=== PATIENT | male | born 1965 | race Caucasian/White ===

== ENCOUNTER 2020-12-15 08:38 | Day surgery (SDC) | payer BC, SELFPAY ==
[2020-12-15] MEDS: Tropicam./Phenyleph. (1/2.5%) 5 ML BTL OS ×3 (09:19→09:30)
[2020-12-15 09:20] VITALS: BP 153/94; PULSE 94; RESP 16; TEMP 36.4; O2SAT 95
--- NOTE | 2020-12-15 09:26 | W.ANESPRE ---
General Info Date of Service Date Performed: 12/15/20 Height: 6 ft 2 in Weight: 155.9 kg Body Mass Index (BMI): 44.1 Surgical Procedure: Operation Date: 12/15/20 10:40 Proposed Procedures Side Surgeon p Cataract Extraction with IOL Implant Left Jose Alfredo Espinoza MD Meds Allergies and Home Medications Allergies Allergy/AdvReac Type Severity Reaction Status Date / Time No Known Allergies Allergy Unverified 12/15/20 09:16 Home Medication Medication Instructions Recorded amlodipine 10 mg PO DAILY 12/13/20 losartan-hydrochlorothiazide 1 tab PO DAILY 12/13/20 Current Visit Medications: Current Medications Generic Name Dose Route Start Last Admin Trade Name Freq PRN Reason Stop Dose Admin Acetaminophen 1,000 mg 12/15/20 06:00 Acetaminophen 500 Mg Tab PO Q4H PRN PRN Miscellaneous Medication 0 ml 12/15/20 06:00 Prednisolone 1%, Moxifloxacin 0.5%, Nepafenac 0.1% 5ml Btl OS DIRECTED SHIRIN Miscellaneous Medication 0 ml 12/15/20 06:00 12/15/20 09:25 Tropicam./Phenyleph. (1/2.5%) 5 Ml Btl OS 1 drp DIRECTED SHIRIN Administration Tetracaine HCl 0 ml 12/15/20 06:00 Tetracaine 0.5% 4 Ml Btl OS DIRECTED SHIRIN PFSH Active Problems Active Problems: Problem Status Onset Code Nuclear sclerotic cataract of left eye H25.12 Posterior subcapsular age-related cataract of left eye H25.042 Medical History Medical History Cataract HTN (hypertension) Leg pain Low back pain Surgical History Surgical History (Updated 12/15/20 @ 09:16 by Shelbi Sánchez) History of appendectomy History of back surgery Hx of hand surgery Tobacco Smoking/Tobacco Use Status: Current-Occasional Tobacco Type: cigarettes Alcohol Alcohol Intake: current Alcohol intake frequency: a few times a week Alcohol type: beer Substance Use Substance use: Never Substance use type: does not use Details: alcohol: t-1, couple drinks Vital Signs and Lab Results Vital Signs Most Recent Vital Signs in EMR: Most Recent Vital Signs Temp Pulse Resp BP Pulse Ox 36.4 C L 94 H 16 153/94 H 95 12/15/20 09:20 12/15/20 09:20 12/15/20 09:20 12/15/20 09:20 12/15/20 09:20 Lab Results Blood Type / Crossmatch: No Data to Display Complete Blood Count: No Data to Display Complete Metabolic Panel: No Data to Display Liver Function Panel: No Data to Display Coagulation Panel: No Data to Display Cardiac Panel: No Data to Display Arterial Blood Gas: No Data to Display Venous Blood Gas: No Data to Display Pancreas Panel: No Data to Display Thyroid Panel: No Data to Display Infectious Disease: No Data to Display Blood Cultures: No Data to Display Toxicology Panel: No Data to Display Anesthesia Assessment and Plan Anesthesia History Personal History: No History of Anesthesia Complications Family History: No Family History of Anesthesia Complications Exercise Tolerance Exercise Tolerance: Metabolic Equivalents>4 Pertinent Negatives Pertinent Negatives: No Symptoms of GERD, No Major Cardiovascular Symptoms or Complaints and No Major Pulmonary Symptoms or Complaints Cardiac & Pulmonary Exam Cardiac Exam: Normal S1/S2 Heart Sounds Pulmonary Exam: Clear Bilateral Breath Sounds Airway Exam Known Difficult Airway: No Mallampati Class: 1 Mouth Opening: Normal (> 3cm) Thyromental Distance: Greater than 3 cm Neck Range of Motion: Full ROM Neck Circumference: Normal Teeth Condition: Normal Dentition ASA Classification ASA Score: ASA 3 Emergency Case?: No NPO Status NPO Status: NPO Clears >2 hours, Solids >8 hours Anesthesia Plan Resuscitation Status: Full Code Anesthesia Technique: MAC Anesthesia Airway Planned: Natural Airway Monitors Used: Standard Monitors
[2020-12-15 09:27] VITALS: BMI 44.1
[2020-12-15] MEDS: Tetracaine 0.5% 4 ML BTL OS (10:41)
[2020-12-15] MEDS: Lidocaine 2% Jelly 6 ML SYR (10:42)
[2020-12-15] MEDS: Povidone-Iodine Ophth 30 ML BTL (10:42)
[2020-12-15] MEDS: Balanced Salt Soln.-PLUS 500 ML BAG (10:43)
[2020-12-15] MEDS: Lidocaine 1% Pres-Free 5 ML VIAL (10:44)
[2020-12-15] MEDS: Duovisc Viscoelastic System EACH 1 EACH (10:44)
[2020-12-15] MEDS: Trypan Blue 0.06% 0.5 ML SYR (10:51)
[2020-12-15 11:12] VITALS: BP 164/97; PULSE 92; RESP 18; TEMP 36.5; O2SAT 100
--- NOTE | 2020-12-15 11:14 | W.PM.DSUDISC ---
Discharge Plan Disposition Patient Disposition: HOME Condition: Good Discharge Details Reason For Visit: Cataract Attending Provider: Jose Alfredo Espinoza Primary Care Provider: Leila Pride Home Meds and New Rx's Prescriptions: No Action losartan-hydrochlorothiazide 100-25 mg Tablet 1 tab PO DAILY RF: 0 amlodipine 10 mg Tablet 10 mg PO DAILY RF: 0 Discharge Instructions Stand Alone Forms: Post-op Topical Cataract, Maxx Luong (DSU) Discharge Orders Discharge Orders: Discharge Order (Routine); Ordered 12/15/20 Ordered By: Jose Alfredo Espinoza DS: Diagnosis Discharge Diagnosis (1) Nuclear sclerotic cataract of left eye: Status: Resolved (2) Posterior subcapsular age-related cataract of left eye: Status: Resolved
--- NOTE | 2020-12-15 11:15 | W.PM.OP ---
Date of service: 12/15/20 Time of Service: 11:15 Operative Note Operative Note DATE OF PROCEDURE: 12/15/20 PRE-OP DIAGNOSIS: Nuclear/posterior subcapsular cataract, left eye Poor red reflex, left eye secondary to cataract POST-OP DIAGNOSIS: same PROCEDURE: Cataract extraction using phacoemulsification with intraocular lens implant, left eye, using capsular staining with Vision Blue SURGEON: Jose Alfredo Espinoza ANESTHESIA TYPE: Local By Surgeon and MAC Refer to Anesthesia Record COMPLICATIONS: None Patient was transported to: same day Patient's condition: stable Implants: [employer] / [employer] Tecnis [id number] Indications: Progressive decreased vision due to cataract, left eye, with poor red reflex Procedure Description: CATARACT SURGERY OPERATIVE REPORT PREOPERATIVE DIAGNOSIS: 1. Nuclear/posterior subcapsular cataract, left eye 2. Poor red reflex secondary to #1 POSTOPERATIVE DIAGNOSIS: Same OPERATION: 1. Cataract extraction using phacoemulsification with posterior chamber intraocular lens implant, left eye. 2. Capsular staining with Vision Blue IOL: IOL Industrial Editor/Model: Hansel & Hansel / JOHNATHAN Tecnis [id number] IOL Power: + 20.5 diopters IOL Serial Number: [id number] Optic Diameter: 6.0 mm Haptic/Overall Diameter: 13.0 mm PHACO INFO: Juan Manuel [employer] Testurion Vision System with OZil and Active Fluidics Cumulative Dispersed Energy (CDE): 5.09 seconds SURGEON: Jose Alfredo Espinoza MD, MARIA DE JESUS ANESTHESIA: Monitored A [facility] (MAC), with local sub-tenon's anesthetic infiltration COMPLICATIONS: None SPECIMENS: None INDICATIONS FOR PROCEDURE: The patient is a 55-year-old gentleman with history of diminished visual acuity in his left eye. He is noted to have a dense posterior subcapsular cataract with moderate nuclear cataract of the left eye. Visual acuity is 2400. The option of cataract surgery was offered to the patient and he wished to proceed. PROCEDURE: The correct surgical eye was identified and marked as the left eye and the pupil was dilated in the preoperative area using mydriatics and cycloplegics. The dilated pupil size was 7.0 mm. He elected to proceed without oral sedation. The patient was brought to the operating room where cardiopulmonary monitoring was instituted and surgical time-out was performed, confirming the correct operative eye and IOL power. Topical anesthesia was administered and ophthalmic povidone-iodine 5% was instilled into the conjunctival fornices. Lidocaine gel was applied to the cornea and the prasanth-ocular area was prepped with Betadine 10% solution and draped in the usual sterile fashion for intraocular surgery, including an aperture drape. A Tegaderm transparent film dressing was cut in half and used to cover the lashes and lid margins. Care was taken to sequester the lashes and lid margins under the Tegaderm dressing. A lid speculum was placed between the lids of the operative eye and the Faraz-Shaneka operating microscope was maneuvered into position. Mckinley scissors were then used to make a conjunctival buttonhole approximately 6mm posterior to the limbus in the inferonasal quadrant. Blunt dissection was carried out to expose bare sclera, and a blunt-tipped sub-tenon?s anesthesia cannula was introduced and passed posteriorly along the globe where non-preserved plain lidocaine was injected into posterior sub-Tenon?s space. A sideport knife was used to make a paracentesis port superiorly/superiortemporally. Intraocular phenylephrine/lidocaine was injected int the anterior chamber.. Air was then injected into the anterior chamber, followed by Vision Blue, which was painted over the anterior capsule and then irrigated out using BSS. The anterior chamber was filled with viscoelastic. A 2.4mm keratome knife was used to create a half-thickness groove at the limbus and then to construct a three-plane near-clear corneal tunnel extending 2.0mm into clear cornea at the 3:00 position. A flap was raised on the anterior capsule and capsulorhexis forceps were used to complete a continuous curvilinear capsulorhexis of 5.0 mm. The anterior capsule was noted to be extremely thin. Balanced salt solution was then used to perform cortical cleaving hydrodissection and nuclear hydrodelineation until the lens could be freely rotated within the capsular bag. The lens nucleus was then disassembled and removed within the capsular bag and iris plane using phacoemulsification. Residual cortical material was removed using the 45-degree angled silicone I/A tip with 0.3mm port. The posterior capsule was carefully polished to remove as much residual lens epithelial cells as safely possible. There was a moderate amount of residual posterior subcapsular plaque which could not be safely removed despite extensive polishing. The capsular bag was then inflated and the anterior chamber deepened with viscoelastic. The lens implant described above was inserted into the capsular bag using the JOHNATHAN [place] Injector. A Kuglen hook was used to dial the IOL into position. Residual viscoelastic was then removed first from posterior to the IOL, then from the anterior chamber using the I/A handpiece. The lens implant was noted to center nicely within the capsular bag. The incisions were stromally hydrated, and the anterior chamber was reformed using BSS. Then 0.5cc of moxifloxacin 1.0mg/ml were injected into the capsular bag and anterior chamber. The incisions were checked with a Weck spear and found to be secure. Several drops of ophthalmic povidone-iodine 5% were then applied to the eye followed by two drops of Imprimis combination prednisolone/moxifloxacin/nepafenac solution. The drapes were removed and a clear plastic protective eye shield was placed over the eye. The patient was then returned to Same Day Surgery in stable condition.
--- NOTE | 2020-12-15 11:22 | W.ANESPOSTOP ---
Postoperative Evaluation Date, Time and Location Date Performed: 12/15/20 Time Performed: 11:16 Patient Location: Day Surgery Unit Vital Signs Most Recent Imported Vital Signs: Most Recent Vital Signs Temp Pulse Resp BP Pulse Ox 36.5 C 92 H 18 164/97 H 100 12/15/20 11:12 12/15/20 11:12 12/15/20 11:12 12/15/20 11:12 12/15/20 11:12 Pain Score Most Recent Pain Score: Most Recent Pain Score Pain Level 0 12/15/20 11:12 Assessment Mental Status: Awake (Alert & Oriented to Patient Baseline) Airway and Respiratory Function: Patent airway with normal (patient baseline) respiratory exam Cardiovascular Function: Hemodynamically Stable Hydration Status: Adequately Hydrated Nausea & Vomiting: No Nausea or Vomiting Pain: Pt. Denies Any Pain Peripheral Nerve Block: Patient did not receive a nerve block
== END 2020-12-15 11:28 | disposition home or self-care (01) ==
PROVIDERS: PCP Family Medicine; Visit Provider Ophthalmology
PROC: (CPT 66984; principal; 2020-12-15 10:30)
DX: H25.042 Posterior subcapsular polar age-related cataract, left eye (principal); F17.210 Nicotine dependence, cigarettes, uncomplicated; I10 Essential (primary) hypertension
CPT/HCPCS: 66984; V2632

== ENCOUNTER 2020-12-29 07:18 | Day surgery (SDC) | payer BC, SELFPAY ==
[2020-12-29 07:34] VITALS: BP 145/101; PULSE 92; RESP 16; TEMP 36.3; O2SAT 97
--- NOTE | 2020-12-29 07:34 | W.ANESPRE ---
General Info Date of Service Date Performed: 12/29/20 Height: 6 ft 2 in Weight: 155.9 kg Body Mass Index (BMI): 44.1 Surgical Procedure: Operation Date: 12/29/20 09:40 Proposed Procedures Side Surgeon p Cataract Extraction with IOL Implant Right Jose Alfredo Espinoza MD Meds Allergies and Home Medications Allergies Allergy/AdvReac Type Severity Reaction Status Date / Time No Known Allergies Allergy Unverified 12/29/20 07:31 Home Medication Medication Instructions Recorded amlodipine 10 mg PO DAILY 12/13/20 losartan-hydrochlorothiazide 1 tab PO DAILY 12/13/20 Current Visit Medications: Current Medications Generic Name Dose Route Start Last Admin Trade Name Freq PRN Reason Stop Dose Admin Acetaminophen 1,000 mg 12/29/20 06:00 Acetaminophen 500 Mg Tab PO Q4H PRN PRN Miscellaneous Medication 0 ml 12/29/20 06:00 Prednisolone 1%, Moxifloxacin 0.5%, Nepafenac 0.1% 5ml Btl OD DIRECTED SHIRIN Miscellaneous Medication 0 ml 12/29/20 06:00 Tropicam./Phenyleph. 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 Medical History Medical History Cataract HTN (hypertension) Leg pain Low back pain Surgical History Surgical History History of appendectomy History of back surgery Hx of hand surgery Tobacco Smoking/Tobacco Use Status: Current-Occasional Tobacco Type: cigarettes Alcohol Alcohol Intake: current Alcohol intake frequency: a few times a week Alcohol type: beer Substance Use Substance use: Never Substance use type: does not use Details: alcohol: t-1, couple drinks Vital Signs and Lab Results Lab Results Blood Type / Crossmatch: No Data to Display Complete Blood Count: No Data to Display Complete Metabolic Panel: No Data to Display Liver Function Panel: No Data to Display Coagulation Panel: No Data to Display Cardiac Panel: No Data to Display Arterial Blood Gas: No Data to Display Venous Blood Gas: No Data to Display Pancreas Panel: No Data to Display Thyroid Panel: No Data to Display Infectious Disease: No Data to Display Blood Cultures: No Data to Display Toxicology Panel: No Data to Display Anesthesia Assessment and Plan Anesthesia History Personal History: No History of Anesthesia Complications Family History: No Family History of Anesthesia Complications Exercise Tolerance Exercise Tolerance: Metabolic Equivalents>4 Pertinent Negatives Pertinent Negatives: No Symptoms of GERD Cardiac & Pulmonary Exam Cardiac Exam: Normal S1/S2 Heart Sounds Pulmonary Exam: Clear Bilateral Breath Sounds Airway Exam Known Difficult Airway: No Mallampati Class: 1 Mouth Opening: Normal (> 3cm) Thyromental Distance: Greater than 3 cm Neck Range of Motion: Full ROM Neck Circumference: Normal Teeth Condition: Normal Dentition ASA Classification ASA Score: ASA 3 Emergency Case?: No NPO Status NPO Status: NPO Clears >2 hours, Solids >8 hours Anesthesia Plan Resuscitation Status: Full Code Anesthesia Technique: MAC Anesthesia Airway Planned: Natural Airway Monitors Used: Standard Monitors
[2020-12-29] MEDS: Tropicam./Phenyleph. (1/2.5%) 5 ML BTL OD ×3 (07:48→07:58)
[2020-12-29 08:05] VITALS: BMI 44.1
[2020-12-29] MEDS: Tetracaine 0.5% 4 ML BTL OD (09:07)
[2020-12-29] MEDS: Balanced Salt Soln.-PLUS 500 ML BAG (09:09)
[2020-12-29] MEDS: Duovisc Viscoelastic System EACH 1 EACH (09:10)
[2020-12-29] MEDS: Lidocaine 1% Pres-Free 5 ML VIAL (09:12)
[2020-12-29] MEDS: Lidocaine 2% Jelly 6 ML SYR (09:13)
[2020-12-29] MEDS: Trypan Blue 0.06% 0.5 ML SYR (09:14)
[2020-12-29] MEDS: Povidone-Iodine Ophth 30 ML BTL (09:14)
--- NOTE | 2020-12-29 09:29 | W.PM.DSUDISC ---
Discharge Plan Disposition Patient Disposition: HOME Condition: Good Discharge Details Attending Provider: Jose Alfredo Espinoza Primary Care Provider: Leila Pride Home Meds and New Rx's Prescriptions: No Action losartan-hydrochlorothiazide 100-25 mg Tablet 1 tab PO DAILY RF: 0 amlodipine 10 mg Tablet 10 mg PO DAILY RF: 0 Discharge Instructions Stand Alone Forms: Post-op Topical Cataract, Maxx Luong (DSU) Discharge Orders Discharge Orders: Discharge Order (Routine); Ordered 12/29/20 Ordered By: Jose Alfredo Espinoza DS: Diagnosis Discharge Diagnosis (1) Posterior subcapsular age-related cataract, right eye: Status: Acute (2) Nuclear sclerotic cataract of right eye: Status: Acute
[2020-12-29 09:30] VITALS: BP 146/95; PULSE 85; RESP 14; TEMP 36.8; O2SAT 98
--- NOTE | 2020-12-29 09:30 | W.PM.OP ---
Date of service: 12/29/20 Time of Service: 09:30 Operative Note Operative Note DATE OF PROCEDURE: 12/29/20 PRE-OP DIAGNOSIS: Nuclear/posterior subcapsular cataract, right eye Poor red reflex secondary to cataract POST-OP DIAGNOSIS: same PROCEDURE: Cataract extraction using phacoemulsification with intraocular lens implantation, right eye, using capsular staining with Vision Blue SURGEON: Jose Alfredo Espinoza ANESTHESIA TYPE: Local By Surgeon and MAC Refer to Anesthesia Record PATHOLOGY: none sent COMPLICATIONS: None Patient was transported to: same day Patient's condition: stable Implants: [employer]el [employer] Hansel / [employer] Medical Optics Tecnis [id number] Indications: Progressive visual loss due to cataract, right eye Procedure Description: CATARACT SURGERY OPERATIVE REPORT PREOPERATIVE DIAGNOSIS: 1. Nuclear/posterior subcapsular cataract, right eye 2. Poor red reflex secondary to #1 POSTOPERATIVE DIAGNOSIS: Same OPERATION: 1. Cataract extraction using phacoemulsification with posterior chamber intraocular lens implant, right eye. 2. Capsular staining with Vision Blue IOL: IOL Sales And Marketing Executive/Model: Hansel & Hansel / JOHNATHAN Tecnis [id number] IOL Power: + 21.0 diopters IOL Serial Number: [id number] Optic Diameter: 6.0mm Haptic/Overall Diameter: 13.0mm PHACO INFO: Juan Manuel [employer]ion Vision System with OZil and Active Fluidics Cumulative Dispersed Energy (CDE): 1.65 seconds SURGEON: Jose Alfredo Espinoza MD, MARIA DE JESUS ANESTHESIA: Monitored Anesthesia Care (MAC), with local sub-tenon's anesthetic infiltration COMPLICATIONS: None SPECIMENS: None INDICATIONS FOR PROCEDURE: The patient is a 55-year-old gentleman with history of diminished visual acuity in both eyes secondary to the development of dense bilateral posterior subcapsular cataract. He has already undergone cataract surgery in the left eye and is doing well postoperatively. He now presents for cataract surgery in the right eye. PROCEDURE: The correct surgical eye was identified and marked as the right eye and the pupil was dilated in the preoperative area using mydriatics and cycloplegics. The dilated pupil size was 7.0 mm. He elected to proceed without oral sedation. The patient was brought to the operating room where cardiopulmonary monitoring was instituted and surgical time-out was performed, confirming the correct operative eye and IOL power. Topical anesthesia was administered and ophthalmic povidone-iodine 5% was instilled into the conjunctival fornices. Lidocaine gel was applied to the cornea and the prasanth-ocular area was prepped with Betadine 10% solution and draped in the usual sterile fashion for intraocular surgery, including an aperture drape. A Tegaderm transparent film dressing was cut in half and used to cover the lashes and lid margins. Care was taken to sequester the lashes and lid margins under the Tegaderm dressing. A lid speculum was placed between the lids of the operative eye and the Faraz-Shaneka operating microscope was maneuvered into position. Mckinley scissors were then used to make a conjunctival buttonhole approximately 6mm posterior to the limbus in the inferonasal quadrant. Blunt dissection was carried out to expose bare sclera, and a blunt-tipped sub-tenon?s anesthesia cannula was introduced and passed posteriorly along the globe where non-preserved plain lidocaine was injected into posterior sub-Tenon?s space. A sideport knife was used to make a paracentesis port inferotemporally. Intraocular phenylephrine/lidocaine was injected into the anterior chamber. Air was injected into the anterior chamber, followed by Vision Blue, which was painted over the anterior capsule and then irrigated out with BSS. The anterior chamber was filled with viscoelastic. A 2.4mm keratome knife was used to create a half-thickness groove at the limbus and then to construct a three-plane near-clear corneal tunnel extending 2.0mm into clear cornea superiortemporally. A flap was raised on the anterior capsule and capsulorhexis forceps were used to complete a continuous curvilinear capsulorhexis of 5.0 mm. The capsule was noted to be quite thin. Balanced salt solution was then used to perform cortical cleaving hydrodissection and nuclear hydrodelineation until the lens could be freely rotated within the capsular bag. The lens nucleus was then disassembled and removed within the capsular bag and iris plane using phacoemulsification. Residual cortical material was removed using the I/A handpiece. The posterior capsule was carefully polished to remove as much residual lens epithelial cells as safely possible. There was some residual posterior subcapsular plaque superiorly and inferiorly which could not be safely removed. The visual axis was clear. The capsular bag was then inflated and the anterior chamber deepened with viscoelastic. The lens implant described above was inserted into the capsular bag using the JOHNATHAN [place] Injector. A Kuglen hook was used to dial the IOL into position. Residual viscoelastic was then removed first from posterior to the IOL, then from the anterior chamber using the I/A handpiece. The lens implant was noted to center nicely within the capsular bag. The incisions were stromally hydrated, and the anterior chamber was reformed using BSS. Then 0.5cc of moxifloxacin 1.0mg/ml were injected into the capsular bag and anterior chamber. The incisions were checked with a Weck spear and found to be secure. Several drops of ophthalmic povidone-iodine 5% were then applied to the eye followed by two drops of Imprimis combination prednisolone/moxifloxacin/nepafenac solution. The drapes were removed and a clear plastic protective eye shield was placed over the eye. The patient was then returned to Same Day Surgery in stable condition.
--- NOTE | 2020-12-29 09:35 | W.ANESPOSTOP ---
Postoperative Evaluation Date, Time and Location Date Performed: 12/29/20 Time Performed: 09:35 Patient Location: Day Surgery Unit Vital Signs Most Recent Imported Vital Signs: Most Recent Vital Signs Temp Pulse Resp BP Pulse Ox 36.3 C L 92 H 16 145/101 H 97 12/29/20 07:34 12/29/20 07:34 12/29/20 07:34 12/29/20 07:34 12/29/20 07:34 Most Recent Manually Entered Vital Signs: Adult Blood Pressure: 146/95 Heart Rate: 86 Respirations: 16 Oxygen Saturation (%): 98 Temperature (C): 36.6 C Pain Score (0-10 Scale): 0 Pain Score Most Recent Pain Score: Most Recent Pain Score Pain Level 0 12/29/20 07:34 Assessment Mental Status: Awake (Alert & Oriented to Patient Baseline) Airway and Respiratory Function: Patent airway with normal (patient baseline) respiratory exam Cardiovascular Function: Hemodynamically Stable Hydration Status: Adequately Hydrated Nausea & Vomiting: No Nausea or Vomiting Pain: Pt. Denies Any Pain Peripheral Nerve Block: Other (Local by Dr. Espinoza)
[2020-12-29 09:37] VITALS: BP 146/95; PULSE 86; RESP 16; TEMPC 36.6; O2SAT 98
== END 2020-12-29 09:50 | disposition home or self-care (01) ==
PROVIDERS: PCP Family Medicine; Visit Provider Ophthalmology
PROC: (CPT 66984; principal; 2020-12-29 09:30)
DX: H25.041 Posterior subcapsular polar age-related cataract, right eye (principal); I10 Essential (primary) hypertension
CPT/HCPCS: 66984; V2632